=== PATIENT | female | born 1970 | race Two or more races ===

== ENCOUNTER 2024-05-17 14:35 | Emergency (ER) | payer MEDICAID, OTHER ==
[~2024-05-17] VITALS: Ht 152.4 cm; Wt 50.6 kg
[2024-05-17] MEDS ORDERED: IBUP-1455 PO (15:44)
[2024-05-17] MEDS: ONDANSETRON ODT 4 MG TAB PO ONE (15:46)
[2024-05-17] MEDS: KETOROLAC TROMETH 30 MG/ML 1ML VIAL IM ONE (15:54)
[2024-05-17 16:08] VITALS: BP 114/72; PULSE 91; RESP 18; TEMP 98.6; O2SAT 97
== END 2024-05-17 15:44 | disposition home or self-care (01) ==
LOC: ER 14:42
DX: S52.592A Other fractures of lower end of left radius, initial encounter for closed fracture (principal); Z88.6 Allergy status to analgesic agent; Z88.2 Allergy status to sulfonamides; X50.0XXA Overexertion from strenuous movement or load, initial encounter; Y93.89 Activity, other specified; Y92.89 Other specified places as the place of occurrence of the external cause; Y99.8 Other external cause status
CPT/HCPCS: 29125; 73110; 96372; 99283; J1885; Q0162